=== PATIENT | male | born 1965 | race Caucasian/White ===

== ENCOUNTER 2018-03-17 18:27 | Emergency (ER) | payer OTHER, MEDICARE ==
[~2018-03-17] VITALS: Ht 190.5 cm; Wt 83.9 kg
[2018-03-17 18:23] VITALS: BP 134/84
[2018-03-17] MEDS ORDERED: Acetaminophen 500mg (ES) tab ORAL ONE (19:00)
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
[2018-03-17] MEDS ORDERED: IBUPROFEN600 MG ORAL (19:27)
[2018-03-17] MEDS ORDERED: ACETAMINOPHEN500 M3 ORAL (19:27)
[2018-03-17 19:39] VITALS: BP 136/79
--- NOTE | 2018-03-18 09:21 | Diagnostic Imaging Report ---
Indication: Chest pain Technique: Continuous helical transaxial imaging of the chest was obtained from the thoracic inlet to the upper abdomen. No intravenous contrast was administered. Coronal 2-D reformats were also obtained. Total Dose length Product (DLP): [address] Dose Index Volume (CTDIvol): 14.61 mGy Comparison: none Findings: The lungs are clear. There is minimal basal atelectasis. Visualized upper abdomen is unremarkable. There is no adenopathy or abnormal fluid collections in the chest. The heart is unremarkable. There is some limitation due to motion. The osseous structures appear grossly unremarkable. No obvious spinal deformity or malalignment appreciated. IMPRESSION: No acute disease. Limited study due to motion The CT scanner at [facility] is accredited by the [employer] and the scans are performed using dose optimization techniques as appropriate to a performed exam including Automatic Exposure control.
== END 2018-03-17 19:39 | disposition home or self-care (01) ==
LOC: EDBD 18:27 → EMR 18:58
DX: R07.89 Other chest pain (principal); G89.29 Other chronic pain
CPT/HCPCS: 71250; 99284

== ENCOUNTER 2019-12-24 02:27 | Emergency (ER) | payer MEDICARE, OTHER ==
[~2019-12-24] VITALS: Ht 190.5 cm; Wt 86.2 kg
[~2019-12-24 02:27] MED LIST: ACETAMINOPHEN500 M3 ORAL; IBUPROFEN600 MG ORAL
[2019-12-24] MEDS ORDERED: Dicyclomine HCl 10mg/5ml oral soln ORAL ONE (02:45)
[2019-12-24] MEDS ORDERED: Mylanta II UD 30ml ORAL ONE (02:45)
[2019-12-24] MEDS ORDERED: Lidocaine 2% Visc 15ml soln ORAL ONE (02:45)
--- NOTE | 2019-12-24 02:53 | Emergency Room Report ---
History of Present Illness General Chief Complaint: Abdominal Pain Source: Patient Present Illness HPI Patient is a 54-year-old male presents after increased generalized abdominal pain associated nausea and vomiting. Reports having increased generalized body aches. Previous history of neuropathy. States that he had previous spinal surgery in the past and had multiple different chronic medical complaints. He denies any recent hematemesis but states has had hematemesis in the past. Reports having prior history of being a smoker. States that he had been using BC powder during episodes of emesis. Denies any bloody stools. States his been having some diarrhea. 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 COVID-19 Screening: Negative COVID-19 COVID-19 Testing Source: november Patient History Past Medical History: see triage record Reviewed Nursing Documentation: PMH: Agreed; PSxH: Agreed Review of Systems All Other Systems: negative except mentioned in HPI Physical Exam Vital Signs Date Time Temp Pulse Resp B/P (MAP) Pulse Ox O2 Delivery O2 Flow Rate FiO2 12/24/19 02:24 98.8 81 19 161/98 (119) 98 Room Air Sp02 EP Interpretation: reviewed, normal General Appearance: normal inspection, well appearing, no apparent distress, alert, GCS 15 Head: atraumatic ENT: normal ENT inspection, hearing grossly normal, normal voice Neck: normal inspection, supple, no bony tend, limited range of motion Respiratory: normal inspection, lungs clear, normal breath sounds, no respiratory distress, no retraction, no wheezing Cardiovascular #1: regular rate, rhythm, no edema Gastrointestinal: normal inspection, normal bowel sounds, non tender, soft, no guarding, no hernia Genitourinary: no CVA tenderness Musculoskeletal: normal inspection, back normal, normal range of motion Neurologic: alert, motor strength/tone normal, 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 Differential diagnosis include was not limited to anemia, substance abuse, gastritis, among others. Laboratory testing was ordered due to patient's history. Patient was noted to have normal laboratory testing apart from mildly decreased potassium. He is not anemic or have abnormalities of his white blood count. Patient does not have any evidence of peritonitis. He is able to urinate normally. Patient was able to ambulate with his walker. Patient appears to be stable for outpatient management. He will be discharged home.Patient was given antiemetics as well as a GI cocktail. He will be discharged with prescriptions for further medications. Urine drug screen was positive for multiple substances.The patient is advised to follow up with primary care doctor in 1-2 days. Patient is advised to return if any worsening condition or if any changes in status that are concerning. This report is dictated with Interface21 clinic clerk software which may occasionally lead to discrepancies related to use of this software. Labs Test 12/24/19 02:45 12/24/19 04:20 White Blood Count 7.8 K/UL (4.8-10.8) Red Blood Count 4.56 M/UL (4.70-6.10) Hemoglobin 13.0 G/DL (14.2-18.0) Hematocrit 39.6 % (42.0-52.0) Mean Corpuscular Volume 87 FL (80-99) Mean Corpuscular Hemoglobin 28.5 PG (27.0-31.0) Mean Corpuscular Hemoglobin Concent 32.8 G/DL (32.0-36.0) Red Cell Distribution Width 12.8 % (11.6-14.8) Platelet Count 331 K/UL (150-450) Mean Platelet Volume 6.3 FL (6.5-10.1) Neutrophils (%) (Auto) 67.4 % (45.0-75.0) Lymphocytes (%) (Auto) 19.8 % (20.0-45.0) Monocytes (%) (Auto) 9.2 % (1.0-10.0) Eosinophils (%) (Auto) 2.1 % (0.0-3.0) Basophils (%) (Auto) 1.4 % (0.0-2.0) Prothrombin Time 11.5 SEC (9.30-11.50) Prothromb Time International Ratio 1.0 (0.9-1.1) Activated Partial Thromboplast Time 30 SEC (23-33) Sodium Level 136 MMOL/L (136-145) Potassium Level 3.4 MMOL/L (3.5-5.1) Chloride Level 101 MMOL/L (98-107) Carbon Dioxide Level 27 MMOL/L (21-32) Anion Gap 8 mmol/L (5-15) Blood Urea Nitrogen 18 mg/dL (7-18) Creatinine 1.3 MG/DL (0.55-1.30) Estimat Glomerular Filtration Rate 57.3 mL/min (>60) Glucose Level 101 MG/DL (74-106) Calcium Level 8.8 MG/DL (8.5-10.1) Total Bilirubin 0.4 MG/DL (0.2-1.0) Aspartate Amino Transf (AST/SGOT) 23 U/L (15-37) Alanine Aminotransferase (ALT/SGPT) 16 U/L (12-78) Alkaline Phosphatase 59 U/L (46-116) Total Protein 8.6 G/DL (6.4-8.2) Albumin 4.3 G/DL (3.4-5.0) Globulin 4.3 g/dL Albumin/Globulin Ratio 1.0 (1.0-2.7) Lipase 206 U/L (73-393) Urine Color Pale yellow Urine Appearance Clear Urine pH 6 (4.5-8.0) Urine Specific [place] 1.010 (1.005-1.035) Urine Protein Negative (NEGATIVE) Urine Glucose (UA) Negative (NEGATIVE) Urine Ketones Negative (NEGATIVE) Urine Blood Negative (NEGATIVE) Urine Nitrite Negative (NEGATIVE) Urine Bilirubin Negative (NEGATIVE) Urine Urobilinogen Normal MG/DL (0.0-1.0) Urine Leukocyte Esterase Negative (NEGATIVE) Last Vital Signs Date Time Temp Pulse Resp B/P (MAP) Pulse Ox O2 Delivery O2 Flow Rate FiO2 12/24/19 02:24 98.8 81 19 161/98 (119) 98 Room Air Status: improved Disposition: HOME, SELF-CARE Condition: Stable Scripts Omeprazole (OMEPRAZOLE) 20 Mg Capsule.dr 20 MG ORAL DAILY, #30 CAP Prov: Ant Hdez MD 12/24/19 Dicyclomine Hcl* (DICYCLOMINE HCL*) 10 Mg Capsule 10 MG ORAL QID, #20 CAP Prov: Ant Hdez MD 12/24/19 Ant Hdez MD Dec 24, 2019 02:53
[2019-12-24 03:27] LABS: BASOPHILS % (AUTO) 1.4 % (0.0-2.0); EOSINOPHILS % (AUTO) 2.1 % (0.0-3.0); HEMATOCRIT 39.6 % (42.0-52.0); LYMPHOCYTES % (AUTO) 19.8 % (20.0-45.0); MEAN CORPUSCULAR VOLUME 87 FL (80-99); MONOCYTES % (AUTO) 9.2 % (1.0-10.0); NEUTROPHILS % (AUTO) 67.4 % (45.0-75.0); PLATELET COUNT 331 K/UL (150-450); RED BLOOD COUNT 4.56 M/UL (4.70-6.10); RED CELL DISTRIBUTION WIDTH 12.8 % (11.6-14.8); WHITE BLOOD COUNT 7.8 K/UL (4.8-10.8)
[2019-12-24 03:36] LABS: ALANINE AMINOTRANSFERASE 16 U/L (12-78); ALBUMIN 4.3 G/DL (3.4-5.0); ALKALINE PHOSPHATASE 59 U/L (46-116); ANION GAP 8 mmol/L (5-15); BILIRUBIN,TOTAL 0.4 MG/DL (0.2-1.0); CALCIUM 8.8 MG/DL (8.5-10.1); CARBON DIOXIDE 27 MMOL/L (21-32); CHLORIDE 101 MMOL/L (98-107); CREATININE 1.3 MG/DL (0.55-1.30); POTASSIUM 3.4 MMOL/L (3.5-5.1); SODIUM 136 MMOL/L (136-145)
[2019-12-24 03:46] LABS: ASPARTATE AMINO TRANSFERASE 23 U/L (15-37); BLOOD UREA NITROGEN 18 mg/dL (7-18)
[2019-12-24 04:36] LABS: APPEARANCE,URINE CLEAR; BILIRUBIN, URINE NEGATIVE (NEGATIVE); COLOR,URINE PALE YELLOW; GLUCOSE, URINE (UA) NEGATIVE (NEGATIVE); KETONES,URINE NEGATIVE (NEGATIVE); LEUKOCYTE ESTERASE ,URINE NEGATIVE (NEGATIVE); NITRITE,URINE NEGATIVE (NEGATIVE); PH,URINE 6 (4.5-8.0); PROTEIN,URINE NEGATIVE (NEGATIVE); UROBILINOGEN,URINE NORMAL MG/DL (0.0-1.0)
[2019-12-24 04:45] VITALS: BP 185/103
[2019-12-24] MEDS ORDERED: OMEPRAZOLE20 M2 ORAL (04:48)
[2019-12-24] MEDS ORDERED: DICYCLOMINE HCL10 MG ORAL (04:48)
[2019-12-24 05:45] VITALS: BP 171/94
[2019-12-24 06:15] VITALS: BP 166/92
[2019-12-24 06:20] VITALS: BP 166/92
== END 2019-12-24 06:20 | disposition home or self-care (01) ==
LOC: EDBD 02:27 → EMR 02:44
DX: R10.9 Unspecified abdominal pain (principal); R11.2 Nausea with vomiting, unspecified; G62.9 Polyneuropathy, unspecified
CPT/HCPCS: 36415; 80053; 80307; 81003; 83690; 85025; 85610; 85730; 96374; 96375; 99284; J2405; J7040; S0028; J8499